=== PATIENT | female | born 1985 | race Caucasian/White ===

== ENCOUNTER 2023-08-29 13:14 | Outpatient (CLI) | payer MEDICAID, SELFPAY ==
[2023-08-29 12:55] LABS: Abs Immature Grans 0.05 10^3/uL (0.0-0.06); Absolute Basophil Count 0.06 10^3/uL (0.0-0.2); Absolute Eosinophil Count 0.12 10^3/uL (0.0-0.7); Absolute Lymphocyte Count 1.67 10^3/uL (1.2-3.4); Absolute Monocyte Count 0.68 10^3/uL (0.1-0.8); Absolute Neutrophil Count 3.86 10^3/uL (1.2-6.7); Basophils % 0.9; Eosinophils % 1.9; HCT 42.7 % (36.0-46.0); HGB 14.3 g/dL (11.2-15.7); Immature Grans % 0.8; Lymphocytes % 25.9; MCH 29.7 pg (27.0-33.0); MCHC 33.5 % (32.0-36.0); MCV 89 fL (80-95); MPV 9.3 fL (8.0-11.0); Monocytes % 10.6; Neutrophils % 59.9; Platelet Count 191 10^3/uL (130-400); RBC 4.82 10^6/uL (3.93-5.22); RDW 12.8 % (11.7-14.6); RDW-SD 41.9 fL; WBC 6.44 10^3/uL (4.4-10.8)
[2023-08-29 13:15] LABS: Hemoglobin A1C 4.7 % (<5.7)
[2023-08-29 13:47] LABS: Vitamin D 25 Total 35.8 ng/mL (30-100)
[2023-08-29 13:51] LABS: ALT 164 U/L (14-59); AST 79 U/L (15-37); Albumin 3.6 g/dL (3.4-5.0); Alkaline Phosphatase 120 U/L (46-116); Anion Gap 9.4 mmol/L (3-11); BUN 10 mg/dL (7-18); Bilirubin, Total 0.6 mg/dL (0.2-1.0); CO2 24.6 mmol/L (21.0-32.0); CREATININE 0.8 mg/dL (0.55-1.02); Calcium 9.1 mg/dL (8.5-10.1); Calculated LDL 91 mg/dL (<100); Chloride 105 mmol/L (98-107); Cholesterol 165 mg/dL (<200); Estimated GFR 95.46 (mL/min/1.73m2); Glucose 105 mg/dL (74-106); HDL Cholesterol 64 mg/dL (40-60); Potassium 4.1 mmol/L (3.5-5.1); Sodium 139 mmol/L (136-145); TSH (W/Ref FT4) 1.31 uIU/mL (0.36-3.74); Total Protein 7.5 g/dL (6.4-8.2); Triglyceride 53 mg/dL (<150); Vitamin B12 1176 pg/mL (193-986)
[2023-08-29 22:27] LABS: HBs Antibody, Quant 429.9 mIU/mL (See Note); Hepatitis B Surface Ab Positive (See Note)
[2023-08-29 23:06] LABS: HIV-1/2 Ag & Ab Screen Negative (Negative)
[2023-08-29 23:14] LABS: Hepatitis A Antibody IgM Negative (Negative); Hepatitis B Core Antibody Negative (Negative); Hepatitis B surface Ag Negative (Negative); Hepatitis C Ab w Rflx HCV PCR Reactive (Negative)
[2023-08-30 10:57] LABS: Syphilis Serology (RPR) Negative (Negative)
[2023-08-30 11:58] LABS: HCV RNA Detection Quantitative 7390000 IU/mL (Undetected); HCV RNA Qualitative Detected (Undetected)
== END 2023-08-29 13:15 | disposition home or self-care (01) ==
LOC: LBO 13:14
PROVIDERS: PCP Nurse Practitioner Family; Visit Provider Nurse Practitioner Family
DX: B18.2 Chronic viral hepatitis C (principal); E78.5 Hyperlipidemia, unspecified; D51.9 Vitamin B12 deficiency anemia, unspecified; E55.9 Vitamin D deficiency, unspecified
CPT/HCPCS: 36415; 80053; 80061; 82306; 86704; 86706; 86709; 86803; 87340; 87389; 87522; 82607; 83036; 84443; 85025; 86592

== ENCOUNTER 2023-08-30 16:15 | Emergency (ER) | payer MEDICAID, SELFPAY ==
[2023-08-30 16:26] VITALS: BP 135/100; PULSE 103; RESP 18; TEMP 36.5
== END 2023-08-30 16:34 ==
PROVIDERS: PCP Nurse Practitioner Family
DX: Z53.21 Procedure and treatment not carried out due to patient leaving prior to being seen by health care provider (principal)

== ENCOUNTER 2023-08-30 21:48 | Inpatient (IN) | payer MEDICAID, SELFPAY ==
[2023-08-30 21:45] VITALS: BP 124/88; PULSE 82; RESP 16; O2SAT 100
[2023-08-30] MEDS: Normal Saline 1,000 ML 1000 ML IV (23:25)
[2023-08-30] MEDS: ACETAMINOPHEN 1,000 MG/100 ML BTL 400 MG IVPB (23:31)
[2023-08-30 23:32] LABS: Lactate 0.6 mmol/L (0.6-1.4)
[2023-08-30] MEDS: diazePAM 10 MG/2 ML SYR IVP (23:32)
[2023-08-30] MEDS: Lidocaine 5% Patch 1 PATCH TP (23:32)
[2023-08-30] MEDS: Ketorolac 15 MG/ML VIAL IVP (23:32)
[2023-08-30 23:33] LABS: Abs Immature Grans 0.04 10^3/uL (0.0-0.06); Absolute Basophil Count 0.08 10^3/uL (0.0-0.2); Absolute Eosinophil Count 0.09 10^3/uL (0.0-0.7); Absolute Lymphocyte Count 2.59 10^3/uL (1.2-3.4); Absolute Monocyte Count 0.77 10^3/uL (0.1-0.8); Eosinophils % 1.2; HGB 13.6 g/dL (11.2-15.7); Immature Grans % 0.5; Lymphocytes % 33.3; MCH 30.2 pg (27.0-33.0); MCV 89 fL (80-95); MPV 9.4 fL (8.0-11.0); Monocytes % 9.9; Neutrophils % 54.1; Platelet Count 198 10^3/uL (130-400); RBC 4.51 10^6/uL (3.93-5.22); RDW 12.7 % (11.7-14.6); RDW-SD 41.5 fL; WBC 7.77 10^3/uL (4.4-10.8)
[2023-08-30 23:34] LABS: ESR 7 mm/hr (0-20)
--- NOTE | 2023-08-30 23:42 | ED.GENADUL_ITS ---
Discharge Plan Disposition Patient Disposition: Admit to [facility] Condition: Good Discharge Details Chief Complaint: Nk/Back Pain Clinical Impression: Common bile duct dilatation, Back pain Primary Care Provider: Nicol Treviño ED Provider: Jamshid Dudley Home Meds and New Rx's Prescriptions: No Action methadone 10 mg/5 mL solution 200 mg PO DAILY bupropion HCl 100 mg tablet 300 mg PO ONCE trazodone 100 mg tablet 100 mg PO QHS PRN HPI General Date/Time Provider Initiated Documentation: 08/30/23 22:05 . HPI Narrative: 38-year-old female who receives most of her care at [facility], with a past medical history of notable polysubstance abuse, IV drug use, depression, hepatitis C, MRSA, cellulitis, previous septic joint in the right knee, endocarditis, who presents today for evaluation of back pain. Patient states that she has been suffering from back pain for the last 4 days. She denies fever or chills. She did take Tylenol and Motrin without improvement. She came earlier today to the emergency department but left after waiting for a few minutes. Allegedly she was quite upset at that time. She returns tonight again via EMS for continued pain. She states that she has been clean from drug use for the last 6 months. She has no other complaints acutely at this time. Related Data Home Medications Medication Instructions Recorded Confirmed bupropion HCl 100 mg tablet 300 mg PO ONCE 08/30/23 08/30/23 methadone 10 mg/5 mL oral solution 200 mg PO DAILY 08/30/23 08/30/23 trazodone 100 mg tablet 100 mg PO QHS PRN 08/30/23 08/30/23 General Stated Complaint: Nk/Back Pain SHERRY: 4 Review of Systems All systems reviewed & are unremarkable except as noted in HPI and below Exam Narrative Exam Narrative: 1.Const: Well-nourished, Well-developed, appearing stated age 2.Eyes: PERRL, no conjunctival injection, and symmetrical lids. 3.ENT: Atraumatic external nose and ears. Moist MM. Neck: Symmetric, trachea mid line, No thyromegaly. 4.CVS: +S1/S2, questionable mild systolic murmur. Peripheral pulses 2+ and equal in all extremities. Brisk capillary refill in all extremities. 5.RESP: Unlabored respiratory effort. Clear to auscultation bilaterally. No wheezes rales or rhonchi 6.GI: Soft, Nontender/Nondistended, No hepatosplenomegaly. No guarding or rebound. 7.MSK: Normocephalic/Atraumatic, Extremities w/o deformity or ttp No cyanosis or clubbing, Normal movement of all extremities. No midline lumbar spine tenderness. No reproducible tenderness on the back. Patient's subjective pain is around T10-L1 on the left paraspinal area, no redness is located there is no. No palpable abscess. No midline tenderness to palpation over the CTLS spine. Normal ROM in flexion, extension, side bend, and rotation. Patient has +5 out of 5 strength in the lower extremities in dorsiflexion and plantarflexion, knee flexion and extension, hip flexion and extension. Normal strength for dorsiflexion and p lantar flexion of the great toe bilaterally. There is +2 over 2 dorsalis pedis pulses bilaterally. There is normal sensation to the skin with light touch at the foot, knee, and hip. Normal saddle sensation. Good sensation over the deep sural nerve area bilaterally. Rectal exam demonstrates good rectal tone with excellent luly-rectal sensation. Reflexes are +2 over 4 in the patellar reflex bilaterally. +5 out of 5 strength in the medial, ulnar, radial nerve distribution bilaterally in the hands as well as intact light touch sensation to these dermatomes on the hands 8.Skin: Warm, Dry. No rashes or lesions. 9.Neuro: egg sorter II-XII grossly intact. Sensation grossly intact, no focal neurologic deficits. 10.Psych: (AAO) x3. Appropriate mood and affect Course Vital Signs Vital signs: Vital Signs Pulse 82 08/30/23 21:45 Respiratory Rate 16 08/30/23 21:45 Blood Pressure 124/88 08/30/23 21:45 Pulse Oximetry 100 08/30/23 21:45 Pulse 82 08/30/23 21:45 Respiratory Rate 16 08/30/23 21:45 Respiratory Effort Normal, Non-Labored 08/30/23 22:51 Blood Pressure 124/88 08/30/23 21:45 Blood Pressure Position Sitting 08/30/23 21:45 Pulse Oximetry 100 08/30/23 21:45 Oxygen Delivery Method Room Air 08/30/23 21:45 Oxygen Flow Rate 0 08/30/23 21:45 Pain Level 9 08/30/23 21:45 Lab/Test Results Lab/Test Results: 08/30/23 23:17 Blood Blood Culture - Pending 08/30/23 22:37 Blood Blood Culture - Pending Laboratory Tests Range/Units 08/30/23 23:17 WBC (4.4-10.8) 10^3/uL 7.77 RBC (3.93-5.22) 10^6/uL 4.51 Hgb (11.2-15.7) g/dL 13.6 Hct (36.0-46.0) % 40.0 MCV (80-95) fL 89 MCH (27.0-33.0) pg 30.2 MCHC (32.0-36.0) % 34.0 RDW (11.7-14.6) % 12.7 Plt Count (130-400) 10^3/uL 198 MPV (8.0-11.0) fL 9.4 Immature Gran % 0.5 Neutrophils % 54.1 Lymphocytes % 33.3 Monocytes % 9.9 Eosinophils % 1.2 Basophils % 1.0 Nucleated RBC % (0.0-0.3) % 0.0 Absolute Neutrophils (1.2-6.7) 10^3/uL 4.20 Absolute Lymphocytes (1.2-3.4) 10^3/uL 2.59 Absolute Monocytes (0.1-0.8) 10^3/uL 0.77 Absolute Eosinophils (0.0-0.7) 10^3/uL 0.09 Absolute Basophils (0.0-0.2) 10^3/uL 0.08 ESR (0-20) mm/hr 7 VBG Lactate (0.6-1.4) mmol/L 0.6 Sodium Cancelled Potassium Cancelled Chloride Cancelled Carbon Dioxide Cancelled Anion Gap Cancelled BUN Cancelled Creatinine Cancelled Est GFR (CKD-EPI 2020) Cancelled Glucose Cancelled Calcium Cancelled Total Bilirubin Cancelled AST Cancelled ALT Cancelled Alkaline Phosphatase Cancelled Total Protein Cancelled Albumin Cancelled Medical Decision Making 38-year-old female who receives most of her care at [facility], with a past medical history of notable polysubstance abuse, IV drug use, depression, hepatitis C, MRSA, cellulitis, previous septic joint in the right knee, endocarditis, who presents today for evaluation of back pain. Patient states that she has been suffering from back pain for the last 4 days. She denies fever or chills. She did take Tylenol and Motrin without improvement. She came earlier today to the emergency department but left after waiting for a few minutes. Allegedly she was quite upset at that time. She returns tonight again via EMS for continued pain. She states that she has been clean from drug use for the last 6 months. She has no other complaints acutely at this time. Exam demonstrates an uncomfortable female, she has difficulty making eye contact secondary to her perpetual movements in bed. No focal deficits. No saddle anesthesia. No reproducible midline or paraspinal back pain, pain appears to be deeper/more internal. She is afebrile here. Concern and differential include spinal abscess, paraspinal abscess, epidural abscess seems much less likely given the lack of neurologic deficits. Bacteremia is less likely but on the differential. Musculoskeletal pain is certainly of concern. Patient agreed with plan, and we will evaluate for these concerning etiologies, treat her pain with Valium, and NSAIDs, monitor closely and reassess. Unfortunately patient did use multiple notably negative and harmful verbal cues/words with the nursing staff on initial assessment. My personal interactions seem to be cordial. 1:06 AM Laboratory workup has returned, no white count bandemia or left shift. ESR and CRP are normal, lactate is normal. Electrolytes normal. Transaminases mildly elevated, procalcitonin normal. On my return to reevaluate the patient after CT imaging she was resting comfortably, however when I did come in the room she made it unequivocally clear that she had some improvement from the Valium and fell asleep but the stupid radiology people came in and woke me up from a CAT scan and now it hurts again. I did discuss with the patient that she has been clean for the last 6 months, and so I offered morphine versus Valium. Patient demanded both, but I thought this would be unwise given the potential neuro sedative effects. Patient chose morphine. Will give 4 mg of morphine. Pending CT imaging. 2:56 AM Laboratory workup has returned normal, normal CBC, no white count bandemia or left shift, normal lactate Pro-Nura ESR and CRP. Electrolytes normal, transaminases slightly elevated. Patient does have known hepatitis C. On repeat discussion see states that she was started in the program for treatment, but has not received complete treatment. She states that she is restarting now for treatment cycle since she has been clean for the last 6 months. Patient has still not yet urinated. CT scan shows no acute process per virtual radiology for the lumbar spine. CT of the abdomen and pelvis and thorax demonstrates no acute spinal process, notable amount of stool in the colon, she also has a common bile duct is distended measuring 13 mm. There is moderate intrahepatic ductal dilatation. Concern for biliary obstruction potentially due to mass or radiolucent stone. Patient does state that her symptoms have been present for the last 2+ weeks, but recently worsened in the last 4 days. Her bilirubin is totally normal on labs. Discussed the case with surgeon Dr. Vazquez, he does not see an emergent indication for MRCP, and does feel that she could potentially follow-up outpatient, however MRCP in the next 24 hours is reasonable. In addition to this I still do have concern for her back pain especially with a history of IV drug use. With her risk factors I do feel that MRI is indicated for further assessment of the thoracic and lumbar spine. And now with the potential need for MRCP I think this only increases the need for further imaging. I discussed the case with the hospitalist Dr. Pena, he agrees with the assessment and plan. Patient will be admitted for observation for MRI and reassessment. Additionally the patient states that she does have improvement of her back pain at this point. She is not asking for any additional opiates or benzodiazepines. She was sleeping resting comfortably in bed when I did come into the room. I have extensively reviewed the treatment plan with the patient. I have addressed all patient concerns at this time. I have also discussed the plan with the admitting physician and they agree with the current assessment and plan and have agreed to assume responsibility for the patient. All parties demonstrate verbal understanding and agreement with our assessment and plan at this time. The documentation in this chart was dictated using [employer] dictation software. Please excuse any dictation errors. FINDINGS: Liver: Normal. No mass. Gallbladder and bile ducts: There is distended CBD measuring up to 13 mm. No radiopaque stone is seen. Moderate intrahepatic ductal dilatation. No radiopaque stones in the gallbladder. No CT evidence of gallbladder wall thickening or pericholecystic fluid. Pancreas: Normal. No ductal dilation. Spleen: Normal. No splenomegaly. Adrenal glands: Normal. No mass. Kidneys and ureters: Kidneys are unremarkable. No hydronephrosis or hydroureter. No evidence of nephrolithiasis. Stomach and bowel: Large amount of stool in the colon. No wall thickening in the small bowel. No evidence of small bowel obstruction. Appendix: No distended tubular structure in right lower quadrant. No inflammatory changes seen in right lower quadrant. No findings to suggest acute appendicitis. Intraperitoneal space: Unremarkable. No free air. No significant fluid collection. Vasculature: Unremarkable. No abdominal aortic aneurysm. Lymph nodes: Unremarkable. No enlarged lymph nodes. Urinary bladder: Unremarkable as visualized. Reproductive: 1.8 x 1.5 cm simple appearing left ovarian cyst.This lesion appears benign. No followup imaging is recommended. Bones/joints: Unremarkable. No acute fracture. Soft tissues: Unremarkable. IMPRESSION: 1. CBD is distended measuring measuring up to 13 mm. No radiopaque obstructing stone is seen. Moderate intrahepatic ductal dilatation. Etiology of biliary obstruction is not clear. Finding could be due to radiolucent stone. Mass lesion in distal CBD can not be excreted Recommend MRCP for further evaluation of biliary obstruction. 2. Large amount of stool in the colon. Finding is consistent with constipation. Thank you for allowing us to participate in the care of your patient. Dictated and Authenticated by: Jose A Bliss MD 08/31/2023 2:26 AM Eastern Time ([place] & [place]) FINDINGS: Bones/joints: Vertebral body heights are within normal limits. No evidence of compression fracture. No evidence of acute fracture. No endplate erosion is seen to suggest discitis. No osseous erosion to suggest osteomyelitis. Soft tissues: Unremarkable. IMPRESSION: No evidence of pathology FINDINGS: Bones/joints: Vertebral body heights are within normal limits. No evidence of compression fracture. No evidence of acute fracture. No osseous erosion to suggest osteomyelitis. No endplate erosion to suggest discitis. No disc protrusion or extrusion. L1-L2: No significant disc bulge or herniation. No severe spinal canal stenosis. No significant neural foraminal narrowing. L2-L3: No significant disc bulge or herniation. No severe spinal canal stenosis. No significant neural foraminal narrowing. L3-L4: No significant disc bulge or herniation. No severe spinal canal stenosis. No significant neural foraminal narrowing. L4-L5: No significant disc bulge or herniation. No severe spinal canal stenosis. No significant neural foraminal narrowing. L5-S1: No significant disc bulge or herniation. No severe spinal canal stenosis. No significant neural foraminal narrowing. Soft tissues: Unremarkable. IMPRESSION: No evidence of pathology. Thank you for allowing us to participate in the care of your patient. Dictated and Authenticated by: Jose A Bliss MD 08/31/2023 1:45 AM Eastern Time ([place] & [place]) Quality:SDOH Health Related Social Needs: No Data to Display PFSH All Active Problems (Updated 08/31/23 @ 03:00 by Jamshid Dudley DO) Back pain (Acute) Common bile duct dilatation (Acute) Social History Smoking/Tobacco Use Status: Current every day Tobacco Type: cigarettes Smoking risk assessment performed?: Yes Alcohol Intake: former Drug use: Never Substance use type: does not use Housing: apartment Do you feel safe at home: Yes Do you feel safe in your relationship?: Yes
[2023-08-30 23:54] LABS: ALT 123 U/L (14-59); AST 60 U/L (15-37); Albumin 3.6 g/dL (3.4-5.0); Alkaline Phosphatase 109 U/L (46-116); Anion Gap 10.9 mmol/L (3-11); BUN 9 mg/dL (7-18); Bilirubin, Total 0.4 mg/dL (0.2-1.0); C-Reactive Protein < 0.50 mg/dL (<or=0.5); CO2 23.1 mmol/L (21.0-32.0); CREATININE 0.8 mg/dL (0.55-1.02); Calcium 8.8 mg/dL (8.5-10.1); Chloride 104 mmol/L (98-107); Estimated GFR 95.46 (mL/min/1.73m2); Glucose 83 mg/dL (74-106); Potassium 4.2 mmol/L (3.5-5.1); Sodium 138 mmol/L (136-145); Total Protein 7.3 g/dL (6.4-8.2)
--- NOTE | 2023-08-31 | DI.CT_ITS ---
Exam(s) CT CHEST/ABD/PEL W CT THORACIC LUMBAR SPINE REC EXAM: CT CHEST/ABD/PEL W CLINICAL HISTORY: t10-L3 back pain, hx of drug/internal abscess. TECHNIQUE: Imaging Protocol: Axial computed tomography images with coronal and sagittal reformatted images were created and reviewed Additional reconstructions of the thoracic and lumbar spine were performed in soft tissue and bone [facility] CONTRAST MATERIAL: Intravenous: Omnipaque 350 Contrast volume:100 ml Oral: no COMPARISON: CT CT THORACIC LUMBAR SPINE REC from 08/31/2023 FINDINGS: CHEST: Tracheobronchial tree: Patent where visualized. Pulmonary parenchyma: No consolidation or dominant measurable mass. Pleura: No effusion or pneumothorax. Lymph nodes: Within normal limits. Aorta: Thoracic portion non-dilated. Heart: No pericardial effusion. Bones: Unremarkable for age. No lytic or blastic lesions.No compression fractures. No evidence of o steomyelitis. Soft tissues: Unremarkable. ABDOMEN and PELVIS: Liver: Normal density. No measurable mass. Gallbladder and biliary tract: No visible stones or wall thickening. Common bile duct dilated to 13 millimeters. No radiopaque stone is visible. No mass is identified. Pancreas: Normal density, no abnormal calcifications or inflammatory process. Spleen: Normal. Kidneys: Normal size, contour and axis. No radiodense stones. No obstructive uropathy. No suspicious masses seen. Adrenal glands: No masses seen. Aorta: Abdominal portion non-dilated. Lymph nodes: Within normal limits. Soft tissues: Small fatty containing umbilical hernia. Small fatty containing inguinal hernias. Bladder: Unremarkable. Bowel: Large amount of stool. No obstruction or bowel wall thickening. No evidence of appendicitis . Peritoneal cavity: No ascites. No focal collection. No mesenteric inflammatory response. Bones: Unremarkable for age. No evidence of fracture. No findings to suggest osteomyelitis. No s ignificant degenerative changes. Reproductive organs: Within normal limits. IMPRESSION: No acute abnormality in the chest. Dilated common bile duct to 13 millimeters. No stone or mass is visible. Findings could be secondar y to a radiolucent stone. MRCP could be considered for further evaluation. Large amount of stool consistent with constipation. RADIATION DOSE DELIVERED: 1,580.72mGy.cm Total DLP DATA REPOSITORY: All CT scans at this facility are submitted to the National Radiology Data Registry (NRDR) Dose Index Registry (DIR) with the [employer] (A[employer]). RADIATION OPTIMIZATION: All CT scans at this facility use at least one of these dose optimization te chniques: automated exposure control; mA and/or kV adjustment per patient size (includes targeted exa ms where dose is matched to clinical indication); or iterative reconstruction.
[2023-08-31 00:10] LABS: Procalcitonin < 0.1 ng/mL
[2023-08-31] MEDS: Omnipaque 350 MG/ML 100 ML BTL IJ (01:06)
[2023-08-31] MEDS: Normal Saline Flush 10 ML SYR IVP ×2 (01:07→07:33)
[2023-08-31] MEDS: Normal Saline - Diluent 50 ML VIAL IJ (01:07)
[2023-08-31] MEDS: MORPHine 4 MG/ML SYR IVP ×3 (01:11→07:33)
[2023-08-31 01:22] VITALS: BP 116/88; PULSE 74; RESP 18; O2SAT 98
--- NOTE | 2023-08-31 01:46 | DI.VRAD_ITS ---
PROCEDURE INFORMATION: Exam: CT Thoracic Spine Without Contrast Exam date and time: 08/31/2023 12:12 AM Age: 38 years old Clinical indication: Other: T10-l3 back pain, HX of drug/internal abscess TECHNIQUE: Imaging protocol: Computed tomography of the thoracic spine without contrast. 3D rendering (Not supervised by radiologist): MIP and/or 3D reconstructed images were created by the technologist. COMPARISON: CT CHEST/ABD/PEL W 08/31/2023 12:12 AM FINDINGS: Bones/joints: Vertebral body heights are within normal limits. No evidence of compression fracture. No evidence of acute fracture. No endplate erosion is seen to suggest discitis. No osseous erosion to suggest osteomyelitis. Soft tissues: Unremarkable. IMPRESSION: No evidence of pathology. PROCEDURE INFORMATION: Exam: CT Lumbar Spine Without Contrast Exam date and time: 08/31/2023 12:12 AM Age: 38 years old Clinical indication: Other: T10-l3 back pain, HX of drug/internal abscess TECHNIQUE: Imaging protocol: Computed tomography of the lumbar spine without contrast. 3D rendering (Not supervised by radiologist): MIP and/or 3D reconstructed images were created by the technologist. COMPARISON: CT CHEST/ABD/PEL W 08/31/2023 12:12 AM FINDINGS: Bones/joints: Vertebral body heights are within normal limits. No evidence of compression fracture. No evidence of acute fracture. No osseous erosion to suggest osteomyelitis. No endplate erosion to suggest discitis. No disc protrusion or extrusion. L1-L2: No significant disc bulge or herniation. No severe spinal canal stenosis. No significant neural foraminal narrowing. L2-L3: No significant disc bulge or herniation. No severe spinal canal stenosis. No significant neural foraminal narrowing. L3-L4: No significant disc bulge or herniation. No severe spinal canal stenosis. No significant neural foraminal narrowing. L4-L5: No significant disc bulge or herniation. No severe spinal canal stenosis. No significant neural foraminal narrowing. L5-S1: No significant disc bulge or herniation. No severe spinal canal stenosis. No significant neural foraminal narrowing. Soft tissues: Unremarkable. IMPRESSION: No evidence of pathology. Dictated and Authenticated by: JoseA Bliss MD. Ordering:JERAD Breen MD
--- NOTE | 2023-08-31 02:26 | DI.VRAD_ITS ---
PROCEDURE INFORMATION: Exam: CT Chest With Contrast; Diagnostic Exam date and time: 08/31/2023 12:12 AM Age: 38 years old Clinical indication: Other: T10-l3 back pain, HX of drug/internal abscess TECHNIQUE: Imaging protocol: Diagnostic computed tomography of the chest with contrast. Contrast material: OMNI 350; Contrast volume: 100 ml; Contrast route: INTRAVENOUS (IV); COMPARISON: CT THORACIC LUMBAR SPINE REC 08/31/2023 12:12 AM FINDINGS: Lungs: No infiltrates. No mass lesion or nodule seen. Pleural spaces: Unremarkable. No pneumothorax. No pleural effusion. Heart: Unremarkable. No cardiomegaly. No pericardial effusion. Lymph nodes: Unremarkable. No enlarged lymph nodes. Vasculature: Unremarkable. No aortic aneurysm. Bones/joints: Unremarkable. No acute fracture. Soft tissues: Unremarkable. IMPRESSION: No evidence of pathology. PROCEDURE INFORMATION: Exam: CT Abdomen And Pelvis With Contrast Exam date and time: 08/31/2023 12:12 AM Age: 38 years old Clinical indication: Other: T10-l3 back pain, HX of drug/internal abscess TECHNIQUE: Imaging protocol: Computed tomography of the abdomen and pelvis with contrast. Contrast material: OMNI 350; Contrast volume: 100 ml; Contrast route: INTRAVENOUS (IV); COMPARISON: CT THORACIC LUMBAR SPINE REC 08/31/2023 12:12 AM FINDINGS: Liver: Normal. No mass. Gallbladder and bile ducts: There is distended CBD measuring up to 13 mm. No radiopaque stone is seen. Moderate intrahepatic ductal dilatation. No radiopaque stones in the gallbladder. No CT evidence of gallbladder wall thickening or pericholecystic fluid. Pancreas: Normal. No ductal dilation. Spleen: Normal. No splenomegaly. Adrenal glands: Normal. No mass. Kidneys and ureters: Kidneys are unremarkable. No hydronephrosis or hydroureter. No evidence of nephrolithiasis. Stomach and bowel: Large amount of stool in the colon. No wall thickening in the small bowel. No evidence of small bowel obstruction. Appendix: No distended tubular structure in right lower quadrant. No inflammatory changes seen in right lower quadrant. No findings to suggest acute appendicitis. Intraperitoneal space: Unremarkable. No free air. No significant fluid collection. Vasculature: Unremarkable. No abdominal aortic aneurysm. Lymph nodes: Unremarkable. No enlarged lymph nodes. Urinary bladder: Unremarkable as visualized. Reproductive: 1.8 x 1.5 cm simple appearing left ovarian cyst.This lesion appears benign. No followup imaging is recommended. Bones/joints: Unremarkable. No acute fracture. Soft tissues: Unremarkable. IMPRESSION: 1. CBD is distended measuring measuring up to 13 mm. No radiopaque obstructing stone is seen. Moderate intrahepatic ductal dilatation. Etiology of biliary obstruction is not clear. Finding could be due to radiolucent stone. Mass lesion in distal CBD can not be excreted Recommend MRCP for further evaluation of biliary obstruction. 2. Large amount of stool in the colon. Finding is consistent with constipation. Dictated and Authenticated by: Jose A Bliss MD. Ordering:JERAD Breen MD
[2023-08-31 02:57] VITALS: BP 108/66; PULSE 72; RESP 18; O2SAT 96
[2023-08-31 03:28] LABS: *AMPHETAMINES SCREEN URINE Negative (Negative); *BARBITURATES SCREEN URINE Negative (Negative); *BENZODIAZEPINES SCREEN URINE Positive (Negative); Cannabinoids THC Negative (Negative); Cocaine Screen,Urine Positive (Negative); METHADONE URINE SCREEN Positive (Negative); OPIATES URINE SCREEN Positive (Negative)
[2023-08-31 03:32] LABS: Bilirubin Negative (Negative); Blood Negative (Negative); Clarity Clear (Clear); Glucose Negative (Negative); Ketones Trace mg/dL (Negative); Leukocyte Esterase Negative (Negative); Nitrite Negative (Negative); Urobilinogen 0.2 mg/dL (Up to 0.2); pH 5.5 (5-8)
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
[2023-08-31 03:36] LABS: Tricyclic Antidepressants Negative (Negative)
[2023-08-31 04:08] VITALS: BP 109/54; PULSE 76; RESP 18; O2SAT 96
[2023-08-31 04:46] VITALS: BP 107/71; PULSE 64; RESP 14; TEMP 36.3; O2SAT 95
[2023-08-31] MEDS: Heparin 5,000 UNITS/ML VIAL 5000 UNITS SC (05:10)
[2023-08-31] MEDS: Normal Saline 1,000 ML 100 ML IV (05:10)
[2023-08-31 07:05] LABS: HCT 39.3 % (36.0-46.0); HGB 13.2 g/dL (11.2-15.7); MCH 29.7 pg (27.0-33.0); MCHC 33.6 % (32.0-36.0); MCV 89 fL (80-95); MPV 9.1 fL (8.0-11.0); Platelet Count 172 10^3/uL (130-400); RBC 4.44 10^6/uL (3.93-5.22); RDW 12.9 % (11.7-14.6); RDW-SD 42.3 fL
[2023-08-31 07:19] LABS: Prothrombin Time 10.1 sec (9.1-11.1)
[2023-08-31 07:25] LABS: Anion Gap 7.9 mmol/L (3-11); BUN 10 mg/dL (7-18); CO2 26.1 mmol/L (21.0-32.0); CREATININE 0.8 mg/dL (0.55-1.02); Calcium 8.5 mg/dL (8.5-10.1); Chloride 107 mmol/L (98-107); Estimated GFR 95.46 (mL/min/1.73m2); Glucose 90 mg/dL (74-106); Magnesium 2.1 mg/dL (1.8-2.4); Potassium 3.8 mmol/L (3.5-5.1); Sodium 141 mmol/L (136-145)
[2023-08-31 07:28] VITALS: BP 125/80; PULSE 87; RESP 18; TEMP 36.9; O2SAT 98
[2023-08-31 07:31] LABS: Lipase 33 U/L (16-77)
[2023-08-31 07:37] LABS: ALT 107 U/L (14-59); AST 53 U/L (15-37); Albumin 3.1 g/dL (3.4-5.0); Alkaline Phosphatase 99 U/L (46-116); Bilirubin, Direct 0.1 mg/dL (0.0-0.2); Bilirubin, Total 0.5 mg/dL (0.2-1.0); Total Protein 6.5 g/dL (6.4-8.2)
[2023-08-31 07:39] VITALS: BP 122/75; PULSE 77; RESP 16; TEMP 36.7; O2SAT 96
--- NOTE | 2023-08-31 07:42 | NUR.NOTE ---
Nursing Note: MANAGER INSPECTION reported to this RN that patient is c/o of pain and asking about methadone dose this morning. RN entered room patient states shes been waiting hours for pain medication. RN informed patient that I have pain medication to administer after vitals have been checked. Patient was agreeable to vital signs but complaining about how we have checked vitals five times in the last hour. Vital signs entered and placed in chart, in normal limits. Reported 10/10 back pain, denies any abdominal pain at this time. 4mg morphine IV given as per order, IV fluids infusing as ordered. Pt requesting to be disconnected from IV to use the bathroom, RN tried to educate patient that IV fluids need to continue infusing and IV pole can be taken with into bathroom and ambulating. Patient became upset and yelling at this RN and Ibis RN was in room at this time. Patient disconnected from IV, w/ IV still in place. Patient continued to yell and removed telemetry herself, getting dressed and stated she will be leaving. RN closed door as patient requested and informed charger operator of current situation. Surinder Gomez RN
--- NOTE | 2023-08-31 07:49 | NUR.NOTE ---
0730: Staff alerted CC that the patient wanted her Methadone and demanded something to eat whether she was able to or not. 0740: Staff again alerted CC that patient had become increasingly agitated, demanding that the RN come into her room to disconnect her IV to allow her to eat and utilize the bathroom. Pt continued to yell profanities and be disrespectful to staff. At this point pt demanded staff take out her IV as she was leaving. 0743: AMA paperwork printed and CC in to patient room to discuss risks and have patient sign paper. Patient then stated I am not fucking staying here there are better hospitals that I can go to and get the tests that I need! I will not be fucking disrespected by this hospital, the doctor already told me this fucking place can not do the tests needed! The CC stated that the patient has every right to leave, just needs to be educated on the risks of leaving before the scheduled MRI and MRCP can be completed. Pt then replied I know the fucking risks, I have been in more hospitals than you have been alive! I am fucking leaving and going to a real fucking hospital. Take this fucking thing out of my arm! CC then stated I know you came in via ambulance, do you have a ride as it is 18 degrees outside? Pt: I dont need a fucking ride, I know my rights Staff pulled the IV from patients L hand and was about to place a dressing over the bleeding site to which the patient responded I don't fucking need that! I am just going to let it bleed so the nurses can fucking clean it up, it is there fucking job! CC again offerd gauze and tape to cover the bleeding site. Pt again NO I do not need that! This fucking place can clean up the blood on the floor, that's all they are good for! CC had asked staff to bring in gauze and tape to cover bleeding site. Pt again yelling profanities walked out of room and asked for the fucking exit Nursing Note:
--- NOTE | 2023-08-31 08:23 | DSE_ITS ---
Date of service: 08/31/23 Time of Service: 08:23 DS: Diagnosis Discharge Diagnosis (1) Common bile duct dilatation: Status: Acute (2) Left paraspinal back pain: Status: Acute (3) Hepatitis C virus infection without hepatic coma: Status: Chronic (4) Polysubstance abuse: Status: Chronic (5) Chronic alcohol use: Status: Chronic Discharge Plan Disposition Patient Disposition: Against Medical Advice Condition: Fair Discharge Details Reason For Visit: Left back pain, Dilated common bile duct Admit Date/Time: 08/31/23 03:48 Admit Provider: Dontae Pena Attending Provider: Dontae Pena Primary Care Provider: Nicol Treviño Hospital Course Hospital Course: See admission H&P and ED note for details as to reason for hospitalization. Patient left the hospital against medical advice. she pulled out her iv and left the hospital without waiting to be seen or counseled. She did not complete her workup of her common bile duct dilatation. She did wait for discharge instructions. Home Meds and New Rx's Prescriptions: No Action methadone 10 mg/5 mL solution 200 mg PO DAILY bupropion HCl 100 mg tablet 300 mg PO ONCE trazodone 100 mg tablet 100 mg PO QHS PRN Discharge Instructions Activity:: Activity as Tolerated Equipment/Supplies:: No Equipment Needed Diet:: Normal Diet Discharge Orders Discharge Orders: Discharge Order (Routine); Ordered 08/31/23 Ordered By: Lazaro Alvarado Discharge Data Discharge Date/Time-TO BE ENTERED AT DEPARTURE: 08/31/23 07:44 DS: Summary Time Spent with Patient providing and/or coordinating discharge services: Less than 30 minutes Status at Discharge Functional status at discharge: independent ambulation Overall status at discharge: other Mental Status: other Speech and Movement: other Mood: other Affect: other Quality:SDOH Health Related Social Needs: Health related social needs inadequate housing Exam Psych Mental Status: other Speech and Movement: other Mood: other Affect: other DS: Data Vitals/I&O Vitals and I&O: Vital Signs Temperature 36.7 C 08/31/23 07:39 Temperature Source Tympanic 08/31/23 07:39 Pulse 77 08/31/23 07:39 Pulse Rhythm Regular 08/31/23 05:55 Respiratory Rate 16 08/31/23 07:39 Respiratory Effort Normal, Non-Labored 08/31/23 05:55 Respiratory Depth Normal 08/31/23 05:55 Respiratory Pattern Normal 08/31/23 05:55 Blood Pressure 122/75 08/31/23 07:39 Blood Pressure Position Sitting 08/30/23 21:45 Pulse Oximetry 96 08/31/23 07:39 Oxygen Delivery Method Room Air 08/31/23 07:39 Oxygen Flow Rate 0 08/31/23 07:39 Pain Level 10 08/31/23 07:28 Intake & Output 08/30/23 08/30/23 08/31/23 11:59 23:59 11:59 Weight 91.138 kg Data Completed and Pending Labs on day of discharge: Labs from last 24 hours 08/31/23 08/31/23 08/30/23 06:20 03:05 23:17 WBC 6.80 RBC 4.44 Hgb 13.2 Hct 39.3 MCV 89 MCH 29.7 MCHC 33.6 RDW 12.9 Plt Count 172 MPV 9.1 Immature Gran % Neutrophils % Lymphocytes % Monocytes % Eosinophils % Basophils % Nucleated RBC % Absolute Neutrophils Absolute Lymphocytes Absolute Monocytes Absolute Eosinophils Absolute Basophils ESR PT 10.1 INR 1.0 VBG Lactate Sodium 141 Potassium 3.8 Chloride 107 Carbon Dioxide 26.1 Anion Gap 7.9 BUN 10 Creatinine 0.8 Est GFR (CKD-EPI 2020) 95.46 Glucose 90 Calcium 8.5 Magnesium 2.1 Total Bilirubin 0.5 Conjugated Bilirubin 0.1 AST 53 H ALT 107 H Alkaline Phosphatase 99 C-Reactive Protein Total Protein 6.5 Albumin 3.1 L 3.6 Lipase 33 Procalcitonin < 0.1 Urine Color Yellow Urine Clarity Clear Urine pH 5.5 Ur Specific [place] 1.010 Urine Protein Negative Urine Ketones Trace H Urine Blood Negative Urine Nitrite Negative Urine Bilirubin Negative Urine Urobilinogen 0.2 Ur Leukocyte Esterase Negative Urine Glucose Negative Urine Opiates Screen Positive A Urine Methadone Screen Positive A Ur Barbiturates Screen Negative Ur Tricyclics Screen Negative Ur Amphetamines Screen Negative U Benzodiazepines Scrn Positive A Urine Cocaine Screen Positive A Ur THC Screen Negative 08/30/23 08/30/23 08/30/23 23:17 23:17 23:17 WBC RBC Hgb Hct MCV MCH MCHC RDW Plt Count MPV Immature Gran % Neutrophils % Lymphocytes % Monocytes % Eosinophils % Basophils % Nucleated RBC % Absolute Neutrophils Absolute Lymphocytes Absolute Monocytes Absolute Eosinophils Absolute Basophils ESR PT INR VBG Lactate Sodium Potassium Chloride Carbon Dioxide Anion Gap BUN Creatinine Est GFR (CKD-EPI 2020) Glucose Calcium Magnesium Total Bilirubin Conjugated Bilirubin AST ALT 123 H Alkaline Phosphatase 109 Cancelled C-Reactive Protein < 0.50 Total Protein 7.3 Cancelled Albumin Cancelled Lipase Procalcitonin Urine Color Urine Clarity Urine pH Ur Specific [place] Urine Protein Urine Ketones Urine Blood Urine Nitrite Urine Bilirubin Urine Urobilinogen Ur Leukocyte Esterase Urine Glucose Urine Opiates Screen Urine Methadone Screen Ur Barbiturates Screen Ur Tricyclics Screen Ur Amphetamines Screen U Benzodiazepines Scrn Urine Cocaine Screen Ur THC Screen 08/30/23 08/30/23 08/30/23 23:17 23:17 23:17 WBC RBC Hgb Hct MCV MCH MCHC RDW Plt Count MPV Immature Gran % Neutrophils % Lymphocytes % Monocytes % Eosinophils % Basophils % Nucleated RBC % Absolute Neutrophils Absolute Lymphocytes Absolute Monocytes Absolute Eosinophils Absolute Basophils ESR PT INR VBG Lactate Sodium Potassium Chloride Carbon Dioxide Anion Gap BUN Creatinine Est GFR (CKD-EPI 2020) Glucose Calcium 8.8 Magnesium Total Bilirubin 0.4 Cancelled Conjugated Bilirubin AST 60 H Cancelled ALT Cancelled Alkaline Phosphatase C-Reactive Protein Total Protein Albumin Lipase Procalcitonin Urine Color Urine Clarity Urine pH Ur Specific [place] Urine Protein Urine Ketones Urine Blood Urine Nitrite Urine Bilirubin Urine Urobilinogen Ur Leukocyte Esterase Urine Glucose Urine Opiates Screen Urine Methadone Screen Ur Barbiturates Screen Ur Tricyclics Screen Ur Amphetamines Screen U Benzodiazepines Scrn Urine Cocaine Screen Ur THC Screen 08/30/23 08/30/23 08/30/23 23:17 23:17 23:17 WBC RBC Hgb Hct MCV MCH MCHC RDW Plt Count MPV Immature Gran % Neutrophils % Lymphocytes % Monocytes % Eosinophils % Basophils % Nucleated RBC % Absolute Neutrophils Absolute Lymphocytes Absolute Monocytes Absolute Eosinophils Absolute Basophils ESR PT INR VBG Lactate Sodium Potassium Chloride Carbon Dioxide Anion Gap BUN Creatinine 0.8 Est GFR (CKD-EPI 2020) 95.46 Cancelled Glucose 83 Cancelled Calcium Cancelled Magnesium Total Bilirubin Conjugated Bilirubin AST ALT Alkaline Phosphatase C-Reactive Protein Total Protein Albumin Lipase Procalcitonin Urine Color Urine Clarity Urine pH Ur Specific [place] Urine Protein Urine Ketones Urine Blood Urine Nitrite Urine Bilirubin Urine Urobilinogen Ur Leukocyte Esterase Urine Glucose Urine Opiates Screen Urine Methadone Screen Ur Barbiturates Screen Ur Tricyclics Screen Ur Amphetamines Screen U Benzodiazepines Scrn Urine Cocaine Screen Ur THC Screen 02/08/30/23 08/30/23 23:17 23:17 23:17 WBC RBC Hgb Hct MCV MCH MCHC RDW Plt Count MPV Immature Gran % Neutrophils % Lymphocytes % Monocytes % Eosinophils % Basophils % Nucleated RBC % Absolute Neutrophils Absolute Lymphocytes Absolute Monocytes Absolute Eosinophils Absolute Basophils ESR PT INR VBG Lactate Sodium Potassium Chloride Carbon Dioxide 23.1 Anion Gap 10.9 Cancelled BUN 9 Cancelled Creatinine Cancelled Est GFR (CKD-EPI 2020) Glucose Calcium Magnesium Total Bilirubin Conjugated Bilirubin AST ALT Alkaline Phosphatase C-Reactive Protein Total Protein Albumin Lipase Procalcitonin Urine Color Urine Clarity Urine pH Ur Specific [place] Urine Protein Urine Ketones Urine Blood Urine Nitrite Urine Bilirubin Urine Urobilinogen Ur Leukocyte Esterase Urine Glucose Urine Opiates Screen Urine Methadone Screen Ur Barbiturates Screen Ur Tricyclics Screen Ur Amphetamines Screen U Benzodiazepines Scrn Urine Cocaine Screen Ur THC Screen 08/30/23 08/30/23 08/30/23 23:17 23:17 23:17 WBC RBC Hgb Hct MCV MCH MCHC RDW Plt Count MPV Immature Gran % Neutrophils % Lymphocytes % Monocytes % Eosinophils % Basophils % Nucleated RBC % Absolute Neutrophils Absolute Lymphocytes Absolute Monocytes Absolute Eosinophils Absolute Basophils ESR PT INR VBG Lactate Sodium 138 Potassium 4.2 Cancelled Chloride 104 Cancelled Carbon Dioxide Cancelled Anion Gap BUN Creatinine Est GFR (CKD-EPI 2020) Glucose Calcium Magnesium Total Bilirubin Conjugated Bilirubin AST ALT Alkaline Phosphatase C-Reactive Protein Total Protein Albumin Lipase Procalcitonin Urine Color Urine Clarity Urine pH Ur Specific [place] Urine Protein Urine Ketones Urine Blood Urine Nitrite Urine Bilirubin Urine Urobilinogen Ur Leukocyte Esterase Urine Glucose Urine Opiates Screen Urine Methadone Screen Ur Barbiturates Screen Ur Tricyclics Screen Ur Amphetamines Screen U Benzodiazepines Scrn Urine Cocaine Screen Ur THC Screen 08/30/23 23:17 WBC 7.77 RBC 4.51 Hgb 13.6 Hct 40.0 MCV 89 MCH 30.2 MCHC 34.0 RDW 12.7 Plt Count 198 MPV 9.4 Immature Gran % 0.5 Neutrophils % 54.1 Lymphocytes % 33.3 Monocytes % 9.9 Eosinophils % 1.2 Basophils % 1.0 Nucleated RBC % 0.0 Absolute Neutrophils 4.20 Absolute Lymphocytes 2.59 Absolute Monocytes 0.77 Absolute Eosinophils 0.09 Absolute Basophils 0.08 ESR 7 PT INR VBG Lactate 0.6 Sodium Cancelled Potassium Chloride Carbon Dioxide Anion Gap BUN Creatinine Est GFR (CKD-EPI 2020) Glucose Calcium Magnesium Total Bilirubin Conjugated Bilirubin AST ALT Alkaline Phosphatase C-Reactive Protein Total Protein Albumin Lipase Procalcitonin Urine Color Urine Clarity Urine pH Ur Specific [place] Urine Protein Urine Ketones Urine Blood Urine Nitrite Urine Bilirubin Urine Urobilinogen Ur Leukocyte Esterase Urine Glucose Urine Opiates Screen Urine Methadone Screen Ur Barbiturates Screen Ur Tricyclics Screen Ur Amphetamines Screen U Benzodiazepines Scrn Urine Cocaine Screen Ur THC Screen 08/30/23 23:17 Blood Blood Culture - Pending Preliminary micro results at discharge 08/30/23 23:17 Blood Culture - Pending Blood PFSH All Active Problems (Updated 08/31/23 @ 04:12 by Dontae Pena) Hepatitis C virus infection without hepatic coma (Chronic) Chronic alcohol use (Chronic) Polysubstance abuse (Chronic) Left paraspinal back pain (Acute) Back pain (Acute) Common bile duct dilatation (Acute) Social History Smoking/Tobacco Use Status: Current every day Tobacco Type: cigarettes Smoking risk assessment performed?: Yes Alcohol Intake: former Drug use: Never Substance use type: does not use Housing: other Do you feel safe at home: Yes Do you feel safe in your relationship?: Yes Time Spent with Patient Time Spent with Patient: <45 minutes ( 5 minutes) Time was spent: other (documentation of AMA status)
== END 2023-08-31 07:44 | disposition left against medical advice (07) | DRG 445 ==
LOC: ER 08-31 04:03 → MS 08-31 04:33
PROVIDERS: Admitting Provider Family Medicine; Emergency Provider Student in an Organized Health Care Education/Training Program; PCP Nurse Practitioner Family; Visit Provider Family Medicine
DX: K83.8 Other specified diseases of biliary tract (principal); F11.20 Opioid dependence, uncomplicated; M54.89 Other dorsalgia; B18.2 Chronic viral hepatitis C; F10.90 Alcohol use, unspecified, uncomplicated; F19.10 Other psychoactive substance abuse, uncomplicated; F17.210 Nicotine dependence, cigarettes, uncomplicated
CPT/HCPCS: 00123; 36415; 74177; 80048; 80053; 80076; 80307; 81025; 83690; 84145; 85027; 85652; 87040; 96374; 96375; 96376; 99285; 71260; 81003; 83605; 83735; 85025; 85610; 86140; 99223; J0131; J1644; J1885; J2270; J3360; J3490

== ENCOUNTER 2023-10-01 16:54 | Emergency (ER) | payer MEDICAID, SELFPAY ==
[2023-10-01 16:57] VITALS: BP 158/104; PULSE 110; RESP 18; O2SAT 95
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
--- NOTE | 2023-10-01 17:15 | RT.EKG_ITS ---
APPROVED REPORT Exam: Resting ECG Reason for Exam: chest pain Patient Location: E HR:101 bpm ECG Measurements Heart Rate 101 AXIS MI 102 P 187 QRSd 81 QRS 16 QT 340 T 22 QTc 442 Conclusion Sinus 101 no stemi
[2023-10-01 17:44] LABS: Abs Immature Grans 0.02 10^3/uL (0.0-0.06); Absolute Eosinophil Count 0.12 10^3/uL (0.0-0.7); Absolute Lymphocyte Count 1.97 10^3/uL (1.2-3.4); Absolute Monocyte Count 0.86 10^3/uL (0.1-0.8); Absolute Neutrophil Count 4.21 10^3/uL (1.2-6.7); Basophils % 1.4; Eosinophils % 1.6; HCT 42.8 % (36.0-46.0); HGB 14.4 g/dL (11.2-15.7); Immature Grans % 0.3; Lymphocytes % 27.1; MCH 29.6 pg (27.0-33.0); MCHC 33.6 % (32.0-36.0); MCV 88 fL (80-95); MPV 9.6 fL (8.0-11.0); Monocytes % 11.8; Neutrophils % 57.8; Platelet Count 238 10^3/uL (130-400); RBC 4.86 10^6/uL (3.93-5.22); RDW 12.3 % (11.7-14.6); WBC 7.28 10^3/uL (4.4-10.8)
[2023-10-01 17:59] LABS: ALT 114 U/L (14-59); AST 79 U/L (15-37); Albumin 4.4 g/dL (3.4-5.0); Alkaline Phosphatase 100 U/L (46-116); Anion Gap 10.4 mmol/L (3-11); BUN 12 mg/dL (7-18); Bilirubin, Total 1.2 mg/dL (0.2-1.0); CO2 27.6 mmol/L (21.0-32.0); CREATININE 0.9 mg/dL (0.55-1.02); Calcium 9.8 mg/dL (8.5-10.1); Chloride 100 mmol/L (98-107); Estimated GFR 82.88 (mL/min/1.73m2); Glucose 88 mg/dL (74-106); Lipase 28 U/L (16-77); Magnesium 2.1 mg/dL (1.8-2.4); Potassium 3.4 mmol/L (3.5-5.1); Sodium 138 mmol/L (136-145); Total Protein 8.7 g/dL (6.4-8.2)
--- NOTE | 2023-10-01 18:00 | DI.CT_ITS ---
Exam(s) CT ABDOMEN PELVIS W EXAM: CT ABDOMEN PELVIS W CLINICAL HISTORY: abd pain TECHNIQUE: Imaging Protocol: Axial computed tomography images with coronal and sagittal reformatted images were created and reviewed. CONTRAST MATERIAL: Intravenous: For 1 contrast volume:100 mL Oral: No COMPARISON: CT CT CHEST/ABD/PEL W from 08/31/[address] THORACIC LUMBAR SPINE REC from 08/31/2023 FINDINGS: ABDOMEN: Lung Bases: Dependent atelectasis. Liver: Normal density. No measurable mass. Portal, Superior Mesenteric, and Splenic Veins: Unremarkable. Gallbladder and Biliary Tract: The common duct is distended measuring 1.5 cm. There is mild intrahep atic biliary ductal dilatation. The gallbladder is mildly distended. No stones are seen. This is u nchanged. Pancreas: Normal density, no abnormal calcifications or inflammatory process. Spleen: The spleen is mildly enlarged. Adrenals: No masses seen. Kidneys: Normal size, contour and axis. No radiodense stones or obstructive uropathy. No masses seen. Abdominal Aorta: Abdominal portion non-dilated. Mild atherosclerotic calcification is present. Bowel: No obstruction or bowel wall thickening. There is no evidence of appendicitis. Peritoneal Cavity: No ascites, collection or mesenteric inflammatory response. No free air. Lymph Nodes: Within normal limits. Bones: Within normal limits for the patient's age. Soft Tissues: There is a small fat containing umbilical hernia. There is a small fat containing left inguinal hernia. PELVIS: Bladder: Symmetric distention, no gross wall thickening. Reproductive Organs: Unremarkable as visualized. Lymph Nodes: Within normal limits. Bones: Within normal limits for the patient's age. IMPRESSION: 1. Persistent extra and intrahepatic biliary ductal dilatation without evidence of stone or definite mass. The gallbladder is distended. Further evaluation with MRCP or MRCP is recommended. 2. Otherwise no acute abdominal or pelvic process. RADIATION DOSE DELIVERED: Total DLP DATA REPOSITORY: All CT scans at this facility are submitted to the National Radiology Data Registry (NRDR) Dose Index Registry (DIR) with the [employer] ([employer]). RADIATION OPTIMIZATION: All CT scans at this facility use at least one of these dose optimization te chniques: automated exposure control; mA and/or kV adjustment per patient size (includes targeted exa ms where dose is matched to clinical indication); or iterative reconstruction.
[2023-10-01 18:04] LABS: Troponin I < 50 ng/L (< or =60)
[2023-10-01 18:06] LABS: Bilirubin Negative (Negative); Blood Negative (Negative); Clarity Clear (Clear); Glucose Negative (Negative); Ketones 15 mg/dL (Negative); Leukocyte Esterase Negative (Negative); Nitrite Negative (Negative); Specific Gravity 1.015 (1.005-1.025); Urobilinogen 0.2 mg/dL (Up to 0.2); pH 5.5 (5-8)
[2023-10-01] MEDS: Normal Saline 1,000 ML 1000 ML IV (18:11)
[2023-10-01 18:22] LABS: *AMPHETAMINES SCREEN URINE Positive (Negative); *BARBITURATES SCREEN URINE Negative (Negative); *BENZODIAZEPINES SCREEN URINE Negative (Negative); Cannabinoids THC Negative (Negative); Cocaine Screen,Urine Positive (Negative); METHADONE URINE SCREEN Positive (Negative); OPIATES URINE SCREEN Negative (Negative)
[2023-10-01 18:25] LABS: Tricyclic Antidepressants Negative (Negative)
[2023-10-01] MEDS: Normal Saline Flush 10 ML SYR IVP (18:35)
[2023-10-01] MEDS: Omnipaque 350 MG/ML 100 ML BTL IJ (18:36)
[2023-10-01] MEDS: Normal Saline - Diluent 50 ML VIAL IJ (18:37)
[2023-10-01] MEDS: Methadone 10 MG TAB 100 MG PO (19:24)
--- NOTE | 2023-10-01 19:31 | DI.VRAD_ITS ---
PROCEDURE INFORMATION: Exam: CT Abdomen And Pelvis With Contrast Exam date and time: 10/01/2023 6:46 PM Age: 38 years old Clinical indication: Abdominal pain; Generalized; Patient HX: Abd pain TECHNIQUE: Imaging protocol: Computed tomography of the abdomen and pelvis with contrast. Radiation optimization: All CT scans at this facility use at least one of these dose optimization techniques: automated exposure control; mA and/or kV adjustment per patient size (includes targeted exams where dose is matched to clinical indication); or iterative reconstruction. Contrast material: OMNIPAQUE 350; Contrast volume: 100 ml; Contrast route: INTRAVENOUS (IV); COMPARISON: CT CHEST/ABD/PEL W 08/31/2023 12:12 AM FINDINGS: Minimal basilar subsegmental atelectasis versus scarring Liver: Moderate intrahepatic biliary ductal dilatation No mass. Hepatomegaly and diffuse fatty infiltration Gallbladder and bile ducts: Gallbladder is distended. Severely dilated common bile duct. No calcified stones. Pancreas: Normal. No ductal dilation. Spleen: Normal. No splenomegaly. Adrenal glands: Normal. No mass. Kidneys and ureters: Normal. No hydronephrosis. Stomach and bowel: Unremarkable. No obstruction. No mucosal thickening. Appendix: No evidence of appendicitis. Intraperitoneal space: Unremarkable. No free air. No significant fluid collection. Vasculature: Unremarkable. No abdominal aortic aneurysm. Lymph nodes: Unremarkable. No enlarged lymph nodes. Urinary bladder: Unremarkable as visualized. Reproductive: Unremarkable as visualized. Bones/joints: Unremarkable. No acute fracture. Soft tissues: Fat containing periumbilical hernia. IMPRESSION: Moderate to severe biliary ductal dilatation. No definite calcified stones in the distal common bile duct. Distended gallbladder. Consider MRCP/ERCP as indicated Dictated and Authenticated by: Louie Garcia MD. Ordering:THONG Easley MD
[2023-10-01] MEDS: Cephalexin 500 MG CAP, 4 CAPS/BTL PO (19:32)
[2023-10-01] MEDS: Potassium Chloride 10 MEQ TABCR PO (19:33)
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
--- NOTE | 2023-10-02 00:35 | NUR.NOTE ---
Pt placed on care management referral list for primary care for abdominal pain and cellulitis to be seen as soon as possible per GIANCARLO Munroe
== END 2023-10-01 19:26 | disposition left against medical advice (07) ==
PROVIDERS: Emergency Provider Nurse Practitioner Family; PCP Nurse Practitioner Family
DX: L03.211 Cellulitis of face (principal); R10.30 Lower abdominal pain, unspecified; F17.210 Nicotine dependence, cigarettes, uncomplicated; Z53.29 Procedure and treatment not carried out because of patient's decision for other reasons
CPT/HCPCS: 36415; 80053; 80307; 83690; 87040; 93005; 99285; 74177; 81003; 83735; 84484; 85025; 93010; 99284; J3490